=== PATIENT | male | born 1985 | race Caucasian/White ===

== ENCOUNTER 2016-12-24 20:50 | Emergency (ER) | payer SELFPAY ==
[~2016-12-24] VITALS: Ht 182.9 cm; Wt 99.0 kg
[2016-12-24 20:54] VITALS: BP 123/62; PULSE 77; RESP 16; TEMP 97.5; O2SAT 99
--- NOTE | 2016-12-24 22:44 | PD ---
HPI Chief Complaint: ENT Complaint Time Seen by Provider: 22:40 Travel History International Travel<30 days: No Contact w/Intl Traveler<30days: No Traveled to known affect area: No History of Present Illness HPI 31-year-old male presents to the emergency room for evaluation of right ear pain for the past several days. Patient states it was intermittent but has become constant. Pain is severe. He has not taken anything for symptoms. Denies fever, chills, nausea, vomiting, drainage, upper respiratory symptoms. No chronic medical conditions or daily medications. He has not been swimming recently. FOR[facility]LY [facility], LATER [facility] Past Medical History Medical History: Denies Significant Hx Diminished Hearing: No Tetanus Vaccination: Unknown Influenza Vaccination: No ?: Not Past Surgical History Surgical History: No Previous Surgery Social History Alcohol Use: No Tobacco Use: Yes (2 cigs day) Substance Use: No Allergies-Medications (Allergen,Severity, Reaction): Coded Allergies: No Known Allergies (Verified , 12/24/16) Review of Systems Except as stated in HPI: all other systems reviewed are Neg Physical Exam Narrative GENERAL: Well-nourished, well-developed male in no acute distress. Afebrile. Ambulatory. SKIN: Focused skin assessment warm/dry. HEAD: Normocephalic. EYES: No scleral icterus. No injection or drainage. NECK: Supple, trachea midline. No JVD or lymphadenopathy. ENT: Mucosa pink and moist. No erythema or exudates. No uvular edema. No uvular , palatal, or tonsillar deviation. Airway patent. Nasal turbinates appear normal without nasal blood, purulent drainage or septal hematoma. EARS: Bilateral pinnae and external canals appear within normal limits. Left tympanic membrane is scarred and dull with loss of landmarks but no perforation. Right tympanic membrane cannot be visualized due to cerumen impaction. CARDIOVASCULAR: Regular rate and rhythm without murmurs, gallops, or rubs. RESPIRATORY: Breath sounds equal bilaterally. No accessory muscle use. Data Data Last Documented VS Vital Signs Date Time Temp Pulse Resp B/P (MAP) Pulse Ox O2 Delivery O2 Flow Rate FiO2 12/24/16 21:40 20 12/24/16 20:54 97.5 77 123/62 (82) 99 Orders Orders Ear Irrigation (12/24/16 22:44) MDM Medical Decision Making Medical Screen Exam Complete: Yes Emergency Medical Condition: Yes Medical Record Reviewed: Yes Differential Diagnosis Cerumen impaction, eustachian tube dysfunction, otitis media, otitis externa Narrative Course 31-year-old male presents to the emergency room for evaluation of right ear pain for the past several days. Pain has gone from intermittent to constant. No fever, drainage, or other upper respiratory symptoms. On exam, the right tympanic membrane cannot be visualized secondary to drainage and/or cerumen impaction. Ear irrigation was performed without success. Patient will be treated for an otitis externa with ofloxacin drops. I have low suspicion for otitis media. Told to follow up with an ear, nose, throat doctor for cerumen impaction or return for worsening symptoms. He understands and agrees to plan. Diagnosis Primary Impression: Otitis externa Qualified Codes: H60.311 - Diffuse otitis externa, right ear Referrals: Primary Care Physician Additional Instructions: Rest and drink plenty of fluids. Drops daily for 7-10 days. Take ibuprofen with food as directed, as needed for pain. Follow-up with a primary care physician. Return to the emergency room for worsening symptoms. Med/Other Pt SpecificInfo: Prescription(s) given Scripts Ofloxacin Otic (Floxin Otic) 0.3 % Aruna 5 DROP RIGHT EAR DAILY for Infection, #1 BOTTLE 0 Refills Prov: Chata Sears MD 12/24/16 Disposition: 01 DISCHARGE HOME Condition: Stable Carrie Negrete Dec 24, 2016 22:44
[2016-12-24] MEDS ORDERED: OFLO1SOL RIGHT EAR (22:54)
== END 2016-12-24 23:07 | disposition home or self-care (01) ==
LOC: PHEFT 20:50
DX: H60.311 Diffuse otitis externa, right ear (principal); F17.210 Nicotine dependence, cigarettes, uncomplicated
CPT/HCPCS: 99283